=== PATIENT | male | born 1975 | race Caucasian/White ===

== ENCOUNTER 2022-06-11 08:16 | Day surgery (SDC) | payer OTHER ==
[~2022-06-11] VITALS: Ht 167.6 cm; Wt 68.0 kg
[2022-06-11] MEDS ORDERED: LIDOCAINE 2% 100 MG/5 ML UJET TP ONE (09:14)
[2022-06-11] MEDS ORDERED: diphenhydrAMINE 50 MG/ML VIAL ONE (09:14)
[2022-06-11] MEDS ORDERED: fentaNYL citrate 0.05 MG/ML VIAL ONE (09:14)
[2022-06-11] MEDS ORDERED: MIDAZOLAM 5 MG/5 ML VIAL ONE (09:14)
[2022-06-11] MEDS ORDERED: MIDAZOLAM 5 MG/5 ML VIAL IV ONE (13:55)
[2022-06-11] MEDS ORDERED: fentaNYL citrate 0.05 MG/ML VIAL IVP ONE (13:55)
[2022-06-11] MEDS ORDERED: diphenhydrAMINE 50 MG/ML VIAL IVP ONE (13:55)
== END 2022-06-11 11:30 | disposition home or self-care (01) ==
LOC: MOR 08:16 → MMU 08:17 → MOR 11:30
PROVIDERS: ATTEND Internal Medicine Gastroenterology
DX: Z12.11 Encounter for screening for malignant neoplasm of colon (principal); D12.0 Benign neoplasm of cecum; K64.8 Other hemorrhoids; E16.1 Other hypoglycemia; F32.A Depression, unspecified; Z79.899 Other long term (current) drug therapy; Z20.822 Contact with and (suspected) exposure to COVID-19
CPT/HCPCS: 45385; 87426; 88305; J1200; J2250; J3010